=== PATIENT | female | born 1985 | race Two or more races ===

== ENCOUNTER 2016-09-26 14:27 | Emergency (ER) | payer MEDICAID, SELFPAY | END 2016-09-26 16:44 | disposition left against medical advice (07) | LOC: ED 14:57 | DX: R06.02 Shortness of breath (principal); Z53.21 Procedure and treatment not carried out due to patient leaving prior to being seen by health care provider ==

== ENCOUNTER → 2019-08-21 | Outpatient (CLI) | payer OTHER, BC | END | disposition home or self-care (01) | LOC: RAD 17:22 | PROVIDERS: ATTEND Family Medicine | DX: R10.84 Generalized abdominal pain (principal); Z90.49 Acquired absence of other specified parts of digestive tract | CPT/HCPCS: 76700 ==